=== PATIENT | male | born 1975 | race Caucasian/White ===

== ENCOUNTER 2021-08-02 01:05 | Emergency (ER) | payer SELFPAY ==
[~2021-08-02] VITALS: Ht 180.3 cm; Wt 90.7 kg
[2021-08-02 01:18] VITALS: BP 159/111
[2021-08-02] MEDS ORDERED: HYDROcodone/APAP 5/325 MG 1 TAB TAB PO ONE (03:45)
[2021-08-02] MEDS ORDERED: ACETAMINOPHEN EXTRA STRENGTH 500 MG TAB ONE (05:00)
[2021-08-02] MEDS ORDERED: ACETAMINOPHEN EXTRA STRENGTH 500 MG TAB PO ONE (05:00)
--- NOTE | 2021-08-02 06:06 | NUR ---
AWAITING CT RESULTS.
[2021-08-02] MEDS ORDERED: ACET-8386 PO (06:31)
[2021-08-02] MEDS ORDERED: IBUP-2213 PO (06:31)
[2021-08-02 06:36] VITALS: BP 159/111
--- NOTE | 2021-08-02 06:36 | NUR ---
Patient discharged with v/s stable. Written and verbal after care instructions given and explained. Patient alert, oriented and verbalized understanding of instructions. Ambulatory with steady gait. All questions addressed prior to discharge. ID band removed. Patient advised to follow up with PMD. Rx of HYDROCODONE ACETAMINOPHEN IBUPROFEN given. Patient educated on indication of medication including possible reaction and side effects. Opportunity to ask questions provided and answered.
== END 2021-08-02 06:36 | disposition home or self-care (01) ==
LOC: MED 01:05
DX: S09.90XA Unspecified injury of head, initial encounter (principal); M54.2 Cervicalgia; V89.2XXA Person injured in unspecified motor-vehicle accident, traffic, initial encounter; Y93.89 Activity, other specified; Y92.89 Other specified places as the place of occurrence of the external cause; Y99.8 Other external cause status
CPT/HCPCS: 70450; 72125; 99284